=== PATIENT | female | born 1940 | race Caucasian/White ===

== ENCOUNTER 2023-10-26 13:55 | Emergency (ER) | payer MEDICARE, BC, SELFPAY ==
[2023-10-26] VITALS (13 sets, daily range): BP systolic 132–194; BP diastolic 59–89; PULSE 72–83; RESP 18; TEMP 37.2; O2SAT 91–96; BMI 20.6
--- NOTE | 2023-10-26 14:37 | CT_ITS ---
Patient: BLAKE COORNADO Facility:?[facility] Patient ID:?[id number] Site Patient ID:?[id number]. Site :?[id number] Study:?CT-Abdomen/Pelvis WITHOUT-10/26/2023 3:11:55 PM Ordering Physician:?DR. CALDWELL Final Report: Indication: Left flank pain Technique: CT abdomen/pelvis without IV contrast Comparison: None Findings: Lower thorax: The heart is at the upper limits of normal in size with small pericardial effusion. There is some minimal linear atelectatic changes seen in the bilateral, left greater than right, lung bases. Abdomen/pelvis: The liver is unremarkable. Cholelithiasis without unenhanced CT evidence of acute cholecystitis. The spleen is within normal limits with small calcified granuloma. The pancreas is unremarkable in appearance. No appreciable adrenal gland nodules. The kidneys are normal in size. There is a hyperdense, exophytic cystic lesion at the lower pole of the right kidney measuring approximately 1 centimeters, incompletely characterized on this exam, but likely a small hemorrhagic cyst. There is no renal calculi or hydroureteronephrosis. The bladder is unremarkable in appearance. Likely postsurgical changes of hysterectomy. No suspicious adnexal lesions. Small hiatal hernia. There is no evidence of bowel obstruction. The appendix is within normal limits. Extensive sigmoid diverticulosis with suspected mild pericolonic inflammatory changes. No appreciable abscess on this unenhanced exam. No free fluid or free air. No pathologically enlarged lymph nodes throughout the abdomen or pelvis. No abdominal aortic aneurysm. No acute fracture or malalignment. There is some degenerative changes of the lower lumbar spine. No suspicious osseous lesions. There are 3 partially threaded screws seen in the proximal right femur without apparent complication. Impression: 1. No renal calculi or hydroureteronephrosis. 2. Extensive sigmoid diverticulosis with suspected mild pericolonic inflammatory changes, suggestive of acute, uncomplicated sigmoid diverticulitis. 3. No free fluid or free air. No appreciable abscess. Please note that all CT scans at this facility use dose modulation, iterative reconstruction, and/or weight-based dosing when appropriate to reduce radiation dose to as low as reasonably achievable. Dictated by Jose G Alarcon MD @ 10/26/2023 3:32:31 PM Signed by:?Jose G Alarcon MD @10/26/2023 3:32:31 PM (Electronic Signature)
--- NOTE | 2023-10-26 14:37 | XR_ITS ---
Patient: BLAKE CORONADO Facility:?[facility] Patient ID:?[id number] Site Patient ID:?[id number]. Site :?[id number] Study:?XRay-Chest 2V-10/26/2023 3:14:23 PM Ordering Physician:MINGO Final Report: Indication: Chest pain Technique: Two views of the chest Comparison: Same day CT abdomen/pelvis Findings: The cardiomediastinal silhouette and pulmonary vasculature are unremarkable. There is no focal airspace consolidation, pleural effusion, or pneumothorax. No displaced fracture. Impression: No acute cardiopulmonary process. Dictated by Jose G Alarcon MD @ 10/26/2023 3:26:11 PM Signed by:?Jose G Alarcon MD @10/26/2023 3:26:11 PM (Electronic Signature)
[2023-10-26 14:59] LABS: Basophils Percent Auto 0.5 % (0.0-3.0); Eosinophils Percent Auto 4.3 % (0.0-7.0); Hematocrit 41.9 % (33.0-51.0); Hemoglobin* 13.7 gm/dL (12.0-16.0); Immature Granulocytes Pct Auto 0.4 %; Lymphocytes Percent Auto 10.8 % (20-44); Mean Corpuscular HGB Conc 33 gm/dL (32-36); Mean Corpuscular Hemoglobin 30 pg (26-34); Mean Corpuscular Volume 92 fL (80-100); Monocytes Percent Auto 6.7 % (0.0-11.0); Neutrophils Percent Auto 77.3 % (42.0-72.0); Platelet Count* 958 K/uL (140-440); RDW Coefficient of Variation % 13.6 % (11.5-15.5); Red Blood Count 4.56 m/uL (4.00-5.20); White Blood Count* 22.23 K/uL (4.50-11.00)
[2023-10-26 15:04] LABS: Troponin, Point-of-Care* 0.02 ng/ml (0.01-0.04)
[2023-10-26 15:15] LABS: Slide Review Reflex No
[2023-10-26 15:26] LABS: Albumin* 4.5 g/dL (3.3-5.0)
[2023-10-26 15:27] LABS: Chloride* 105 mmol/L (96-114); Potassium* 3.8 mmol/L (3.6-5.1); Sodium* 138 mmol/L (135-149)
[2023-10-26 15:29] LABS: Anion Gap 9 mEq/L (7-15); Bilirubin Total* 0.6 mg/dL (0.1-1.5); Carbon Dioxide* 24 mmol/L (20-32); Creatinine* 0.5 mg/dL (0.5-1.5); D Dimer Quantitative* 0.42 ug/ml (0.00-0.50); Est. Creatinine Clearance* 36.63; Estimated Glomerular Filt Rate 93 ml/min
[2023-10-26 15:30] LABS: Alanine Aminotransferase* 22 U/L (4-35); Alkaline Phosphatase* 90 U/L (40-150); Aspartate Amino Transferase* 28 U/L (12-35); Blood Urea Nitrogen* 18 mg/dL (7-30); Calcium* 9.6 mg/dL (8.4-10.6); Glucose* 129 mg/dL (60-115); Lipase* 98 U/L (23-300); Total Protein* 7.9 g/dL (6.0-8.3)
--- NOTE | 2023-10-26 15:31 | ED.CHESTPAIN ---
HPI - Chest Pain General Date Seen: 10/26/23 Chief Complaint: Chest Pain Stated Complaint: Chest pain, nausea Time Seen by Provider: 10/26/23 14:22 Source: patient Mode of arrival: ambulatory Limitations: no limitations History of Present Illness HPI narrative: Patient is an 83-year-old female with a history of hypertension presenting to the emergency department for chest and left flank pain. Chest pain started this morning and she describes it as a dull sensation in her chest. The chest pain has since resolved and pain is now moved to her left flank. States she had symptoms like this 2 months ago when she missed a dose of her blood pressure medication. After she been took the does symptoms resolved by the next day. Denies missing any medications over the past few days. No other health problems. Has never had any heart or lung issues. Has some intermittent dizziness but she says is normal for her and she has talking to her primary care provider about it because this symptoms started about the same time she was started on valsartan a couple years ago. Denies fevers, chills, shortness of breath, weakness, lightheadedness, abdominal pain, vision changes, numbness. Related Data Home Medications Medication Instructions Recorded Confirmed carvedilol .ROUTE 10/26/23 valsartan 80 mg tablet 80 mg PO DAILY 10/26/23 10/26/23 Allergies Allergy/AdvReac Type Severity Reaction Status Date / Time No Known Drug Allergies Allergy Verified 10/26/23 14:13 Review of Systems Status of ROS Reports: 10 or more systems reviewed and unremarkable except as noted in History and below PFS PFS Social History Smoking Status: Never smoker Do you use any of these nicotine containing products: None Second hand tobacco smoke exposure: No How often do you have a drink containing alcohol: never How often do you have six or more drinks on one occasion: Never AUDIT-C Alcohol total score: 0 Non-prescribed substance use: denies use service: No Exam Narrative Exam Narrative: Const: Well-nourished, Well-developed, in mild distress Eyes: PERRL, no conjunctival injection, and symmetrical lids HENT: Atraumatic external nose and ears. Moist mucous membranes. Neck: Symmetric, trachea midline, No thyromegaly. CVS: RRR, No murmurs or gallops. Peripheral pulses 2+ and equal in all extremities RESP: Unlabored respiratory effort. Clear to auscultation bilaterally. GI: Nontender/Nondistended, No rebound or guarding. MSK:Extremities w/o deformity, Normal Active ROM, mild left flank tenderness Skin: Warm, Dry. No rashes or lesions. Neuro: Normal Muscle tone, No focal neurological deficits. Psych: Awake, Alert, & Oriented x3. Appropriate mood and affect. Const Vital Signs, click to edit/add: Vital Signs - 24 hr 10/26/23 14:09 10/26/23 15:13 10/26/23 15:15 Temperature 99.0 F Pulse Rate 83 81 Pulse Rate [Pulse Oximeter] 80 Respiratory Rate 18 Blood Pressure Blood Pressure [Right Upper Arm] 194/89 H Pulse Oximetry 94 92 94 Oxygen Delivery Method Room Air 10/26/23 15:21 10/26/23 15:30 10/26/23 15:41 Temperature Pulse Rate 79 79 77 Pulse Rate [Pulse Oximeter] Respiratory Rate Blood Pressure 142/70 H 132/59 L Blood Pressure [Right Upper Arm] Pulse Oximetry 95 96 94 Oxygen Delivery Method 10/26/23 15:45 10/26/23 16:00 10/26/23 16:01 Temperature Pulse Rate 76 74 72 Pulse Rate [Pulse Oximeter] Respiratory Rate Blood Pressure 136/64 Blood Pressure [Right Upper Arm] Pulse Oximetry 94 95 95 Oxygen Delivery Method 10/26/23 16:51 10/26/23 17:00 10/26/23 17:04 Temperature Pulse Rate 80 73 73 Pulse Rate [Pulse Oximeter] Respiratory Rate Blood Pressure Blood Pressure [Right Upper Arm] Pulse Oximetry 91 95 94 Oxygen Delivery Method 10/26/23 17:15 Temperature Pulse Rate 75 Pulse Rate [Pulse Oximeter] Respiratory Rate Blood Pressure Blood Pressure [Right Upper Arm] Pulse Oximetry 95 Oxygen Delivery Method Course Vital Signs Vital signs: Initial Vital Signs Temperature 99.0 F 10/26/23 14:09 Temperature Source Temporal Artery Scan 10/26/23 14:09 Pulse Rate 80 10/26/23 14:09 Respiratory Rate 18 10/26/23 14:09 Blood Pressure 194/89 H 10/26/23 14:09 Blood Pressure Mean 124 H 10/26/23 14:09 Pulse Oximetry 94 10/26/23 14:09 Oxygen Delivery Method Room Air 10/26/23 14:09 Vital Signs Temperature 99.0 F 10/26/23 14:09 Pulse Rate 80 10/26/23 14:09 Respiratory Rate 18 10/26/23 14:09 Blood Pressure 194/89 H 10/26/23 14:09 Pulse Oximetry 94 10/26/23 14:09 Oxygen Delivery Method Room Air 10/26/23 14:09 Temperature 99.0 F 10/26/23 14:09 Pulse Rate 75 10/26/23 17:15 Respiratory Rate 18 10/26/23 14:09 Blood Pressure 136/64 10/26/23 16:01 Pulse Oximetry 95 10/26/23 17:15 Oxygen Delivery Method Room Air 10/26/23 14:09 MDM - Chest Pain MDM Narrative Medical decision making narrative: Patient is an 83-year-old female presenting for chest and left flank pain. Chest pain started this morning but is mostly resolved with her pain mostly being in her left flank. Considering the pain is mostly in the flank now I do have concern for nephrolithiasis and a non-con CT scan was ordered. Her chest discomfort though I will also order a troponin and EKG to look for signs of ACS, D-dimer look for signs of PE, CBC, CMP, COVID/flu/RSV. Chest chest x-ray was ordered to look for signs of be great of pneumonia pneumothorax. D-dimer within normal limits in PE was excluded. CMP showed no concerning findings. COVID/flu/RSV were negative. Main concern was her CBC shows a white count 22.23 that is neutrophil predominant along with an elevated platelet count. I do not have previous lab work to compare this to. CT scan of the abdomen pelvis showed no signs of nephrolithiasis or other kidney problems but there are diffuse inflammatory changes that suggest acute uncomplicated diverticulitis. This is not where her symptoms are but would explain her white blood cell count. She meets no other SIRS criteria. We repeat her troponin and it is still within normal limits. Her symptoms have all now fully resolved and she is feeling well. While she does have a very high white count she is doing well with normal vital signs and I do believe she is safe for discharge. I will not give her antibiotics as it is no longer recommended for diverticulitis. I did give her strict return precautions to get re-evaluated immediately if she develops any worsening symptoms at all. She states she fully understands and agrees to come back if anything concerning changes Lab Data Labs: Lab Results 10/26/23 10/26/23 10/26/23 Range/Units 14:46 16:08 16:50 WBC 22.23 H (4.50-11.00) K/uL RBC 4.56 (4.00-5.20) m/uL Hgb 13.7 (12.0-16.0) gm/dL Hct 41.9 (33.0-51.0) % MCV 92 (80-100) fL MCH 30 (26-34) pg MCHC 33 (32-36) gm/dL RDW Coeff of Alvaro 13.6 (11.5-15.5) % Plt Count 958 H (140-440) K/uL Neut % (Auto) 77.3 H (42.0-72.0) % Lymph % (Auto) 10.8 L (20-44) % [place] % (Auto) 6.7 (0.0-11.0) % Eos % (Auto) 4.3 (0.0-7.0) % Baso % (Auto) 0.5 (0.0-3.0) % Neut # (Auto) 17.20 H (1.7-7.0) K/uL Lymph # (Auto) 2.40 (0.90-2.90) K/uL [place]ier # (Auto) 1.50 H (0.00-0.90) K/UL Eos # (Auto) 1.00 H (0.00-0.50) K/uL Baso # (Auto) 0.10 (0.00-0.30) K/uL Abs Immat Gran (auto) 0.10 (0.00-0.30) K/uL Imm/Tot Granulo (auto) 0.4 % D-Dimer Quant (PE/DVT) 0.42 (0.00-0.50) ug/ml Sodium 138 (135-149) mmol/L Potassium 3.8 (3.6-5.1) mmol/L Chloride 105 (96-114) mmol/L Carbon Dioxide 24 (20-32) mmol/L Anion Gap 9 (7-15) mEq/L BUN 18 (7-30) mg/dL Creatinine 0.5 (0.5-1.5) mg/dL Estimated Creat Clear 36.63 Estimated GFR 93 ml/min Glucose 129 H (60-115) mg/dL Calcium 9.6 (8.4-10.6) mg/dL Total Bilirubin 0.6 (0.1-1.5) mg/dL AST 28 (12-35) U/L ALT 22 (4-35) U/L Alkaline Phosphatase 90 (40-150) U/L Total Protein 7.9 (6.0-8.3) g/dL Albumin 4.5 (3.3-5.0) g/dL Lipase 98 (23-300) U/L Urine Color Jeanna A (Yellow) Urine Appearance Clear (Clear) Urine pH 5.5 (5.0-8.5) Ur Specific [place] 1.025 (1.000-1.030) Urine Protein 1+ A (Negative) Urine Glucose (UA) Negative (Negative) Urine Ketones 1+ A (Negative) Urine Blood Negative (Negative) Urine Nitrite Negative (Negative) Urine Bilirubin Negative (Negative) Urine Urobilinogen 0.2 (0.2-1.0) Ur Leukocyte Esterase Negative (Negative) Urine RBC 0-2 (0-2) Urine WBC 0-2 (0-5) Ur Squamous Epith Cells Few (None-Few) Amorphous Sediment Few A (None) Urine Bacteria None (None) SARS-CoV-2 (PCR) Negative SARS-CoV-2 (Negative) Influenza Type A (PCR) Negative PCR FLU A (Negative) Influenza Type B (PCR) Negative PCR FLU B (Negative) RSV (PCR) Negative PCR RSV (Negative) POC Troponin I 0.02 0.01 (0.01-0.04) ng/ml Imaging Data Chest x-ray: Attestation: I have reviewed the pertinent imaging results. Radiologist's impression: No acute cardiopulmonary process. Dictated by Jose G Alarcon MD @ 10/26/2023 3:26:[address] scan abdomen and pelvis: Attestation: I have reviewed the pertinent imaging results. Radiologist's impression: 1. No renal calculi or hydroureteronephrosis. 2. Extensive sigmoid diverticulosis with suspected mild pericolonic inflammatory changes, suggestive of acute, uncomplicated sigmoid diverticulitis. 3. No free fluid or free air. No appreciable abscess. Please note that all CT scans at this facility use dose modulation, iterative reconstruction, and/or weight-based dosing when appropriate to reduce radiation dose to as low as reasonably achievable. Dictated by Jose G Alarcon MD @ 10/26/2023 3:32:31 PM ECG Data Attestation: I personally reviewed and interpreted this ECG as follows: Prior ECG tracings: not available for review Interpretation: Normal sinus rhythm with a rate of 85 beats per minute, normal intervals, normal axis, no ST or T-wave abnormalities Discharge Plan Discharge Clinical Impression: Diverticulitis, Atypical chest pain Patient Disposition: Home, Self-Care Condition: Improved Instructions: Diverticulitis (DC), Noncardiac Chest Pain (ED) Additional Instructions: I cannot say for certain what was causing chest pain but is not appear to be heart related at this time. You do have an abnormally high white blood cell count. I do not see any obvious signs of infection other than diverticulitis on your CT scan. While this could be the cause of your elevated white blood cell count I would also be concerned for any other worsening infections. I believe it is safe for you to go home at this time although I highly recommend you return to the emergency department immediately if you feel worsening symptoms at any time. It is important to get re-evaluated sooner rather than later. Prescriptions: No Action carvedilol .ROUTE valsartan 80 mg tablet 80 mg PO DAILY Follow Up/Referrals: Provider,Not a Local [Primary Care Provider] - Stand Alone Forms: [facility] Info Instructions
[2023-10-26 15:37] LABS: PCR FLU A Negative PCR FLU A (Negative); PCR FLU B Negative PCR FLU B (Negative); PCR RSV Negative PCR RSV (Negative); SARS PCR* Negative SARS-CoV-2 (Negative)
[2023-10-26 16:26] LABS: Appearance Urine Clear (Clear); Bilirubin Urine Negative (Negative); Blood Urine Negative (Negative); Color Urine Amber (Yellow); Glucose Urine Negative (Negative); Ketones Urine 1+ (Negative); Leukocyte Esterase Urine Negative (Negative); Nitrite Urine Negative (Negative); Protein Urine 1+ (Negative); Specific Gravity Urine 1.025 (1.000-1.030); Urobilinogen Urine 0.2 (0.2-1.0); pH Urine 5.5 (5.0-8.5)
[2023-10-26 16:43] LABS: Amorphous Sediment Urine Few; RBC Urine 0-2 (0-2); Squamous Epithelial Cell Urine Few (None-Few); WBC Urine 0-2 (0-5)
[2023-10-26 17:06] LABS: Troponin, Point-of-Care* 0.01 ng/ml (0.01-0.04)
== END 2023-10-26 17:40 | disposition home or self-care (01) ==
PROVIDERS: Emergency Provider Student in an Organized Health Care Education/Training Program
DX: R07.9 Chest pain, unspecified (principal); K57.92 Diverticulitis of intestine, part unspecified, without perforation or abscess without bleeding
CPT/HCPCS: 36415; 71046; 74176; 80053; 81001; 83690; 84484; 85025; 85379; 87631; 93005; 99283; 99284; 99285